=== PATIENT | male | born 1980 | race Caucasian/White ===

== ENCOUNTER 2019-07-04 15:48 | Emergency (ER) | payer OTHER ==
[2019-07-04] MEDS: CEPHALEXIN 500 MG CAP PO (16:23)
[2019-07-04] MEDS: TRIMETHOPRIM/SULFAMETHOX (DS) TAB PO (16:23)
== END 2019-07-04 16:40 | disposition home or self-care (01) ==
LOC: FTE 16:40
DX: L03.90 Cellulitis, unspecified (principal); L02.414 Cutaneous abscess of left upper limb; F17.210 Nicotine dependence, cigarettes, uncomplicated
CPT/HCPCS: 99283; Z7502